=== PATIENT | female | born 2005 | race Caucasian/White ===

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

== ENCOUNTER 2025-06-09 16:01 | Emergency (ER) | payer BC, OTHER | END 2025-06-09 16:32 | disposition home or self-care (01) | LOC: VM.ED 16:01 | DX: S61.202A Unspecified open wound of right middle finger without damage to nail, initial encounter (principal); W26.8XXA Contact with other sharp object(s), not elsewhere classified, initial encounter | CPT/HCPCS: 99282; 99283 ==